=== PATIENT | female | born 1955 | race Caucasian/White ===

== ENCOUNTER 2021-03-12 12:33 | Outpatient (CLI) | payer MEDICARE, MEDICAID, SELFPAY ==
--- NOTE | ~2021-03-12 | MM_ITS ---
EXAMINATION: MM stereotactic bx RT, MM post biopsy diagnostic RT, MM stereotactic specimen RT, Specim en Radiograph, Tissue Marker Clip Placement, Unilateral Mammogram DATE: 03/12/2021 14:18 (accession [id number]), 03/12/2021 14:20 (accession [id number]), 03/12 14:19 (accession [id number]) INDICATION: Abnormal mammogram: Grouped inner mid right breast microcalcifications. TECHNIQUE AND FINDINGS: The risks and potential benefits of the procedure were discussed with the patient and written informe d consent was obtained. Timeout procedure was performed. The patient was placed in the prone position on the dedicated stereotactic table with the right breast in craniocaudal compression, and the area of interest was localized and targeted utilizing digital imaging with stereotaxis. After sterile preparation of the skin, 1% lidocaine was utilized for local anesthesia at the skin pun cture site and 1% lidocaine with epinephrine was utilized for deeper local anesthesia/is about the bi opsy site. A 9G [facility] vacuum assisted biopsy needle was advanced to the level of the calcification o f interest from a cephalad approach utilizing stereotactic guidance and a total of 12 tissue core bio psies were obtained. A specimen radiograph demonstrates that the calcifications of interest are included within the tissue cores. A tissue marker clip was then placed at the biopsy site. A digital mammographic exposure co nfirmed the successful deployment of the biopsy marker. The needle was removed and hemostasis was ac hieved. A sterile bandage was applied. The patient tolerated the procedure well and there is no javy dence of significant immediate complication. The patient was given verbal as well as written postpro cedural instructions prior to discharge from the department. Tissue cores were submitted to surgical pathology for histologic analysis. A 2-view right unilateral digital mammogram was obtained post procedure, demonstrating the tissue mar ker clip in expected position. IMPRESSION: 1. Successful stereotactic biopsy of inner mid right breast grouped microcalcifications, followed b y tissue marker clip placement. Please refer to pathology report for histologic analysis. Reviewed, dictated and finalized at [facility]. Reviewed, dictated and finalized at [facility]. IMPRESSION: 1. Successful stereotactic biopsy of inner mid right breast grouped microcalc ifications, followed by tissue marker clip placement. Please refer to patholog y report for histologic analysis. IMPRESSION: 1. Successful stereotactic biopsy of inner mid right breast grouped microcalc ifications, followed by tissue marker clip placement. Please refer to patholog y report for histologic analysis.
== END 2021-03-12 12:34 | disposition home or self-care (01) ==
PROVIDERS: Visit Provider Surgery
DX: R92.1 Mammographic calcification found on diagnostic imaging of breast (principal)
CPT/HCPCS: 19081; 77065; 88305; 88342

== ENCOUNTER 2021-04-05 10:30 | Outpatient (CLI) | payer MEDICARE, MEDICAID, SELFPAY ==
[2021-04-05 10:59] LABS: Basophils Absolute Auto 0.1 K/mm3 (0.0-0.1); Basophils Percent Auto 0.7 % (0.2-1.2); Eosinophils Absolute Auto 0.3 K/mm3 (0-0.3); Eosinophils Percent Auto 4.1 % (0-4.4); Hematocrit 44.1 % (37.0-47.0); Hemoglobin 14.5 g/dL (12.0-15.0); Immature Granulocyte Absolute 0.02 K/mm3 (0.00-0.031); Immature Granulocyte Percent A 0.3 % (0-0.5); Lymphocytes Absolute Auto 2.15 K/mm3 (0.9-3.2); Lymphocytes Percent Auto 30.3 % (18.3-44.2); Mean Corpuscular HGB Conc 32.9 g/dl (32-36); Mean Corpuscular Hemoglobin 30.7 pg (26-34); Mean Corpuscular Volume 93.4 fl (80-100); Monocytes Absolute Auto 0.4 K/mm3 (0.1-0.6); Monocytes Percent Auto 5.8 % (2.6-8.5); Neutrophils Absolute Auto 4.2 K/mm3 (1.3-6.7); Neutrophils Percent Auto 58.8 % (45.5-73.1); Platelet Count Result 246 k/mm3 (150-375); Red Blood Count 4.72 M/mm3 (4.2-5.4); Red Cell Distribution Width 13.9 % (11.5-14.5); White Blood Count 7.1 K/mm3 (4.5-10.0)
[2021-04-05 11:11] LABS: Alanine Aminotransferase 22 U/L (4-35); Alkaline Phosphatase 92 U/L (38-126); Anion Gap 10 mmol/L (8-16); Aspartate Amino Transferase 29 U/L (14-36); Bilirubin,Total 1.9 mg/dL (0.2-1.3); Blood Urea Nitrogen 15 mg/dL (7-17); Calcium 9.9 mg/dL (8.4-10.2); Carbon Dioxide 29 mmol/L (22-30); Chloride 101 mmol/L (98-107); Estimated Glomerular Filt Rate > 60; Glucose 99 mg/dL (65-110); Potassium 4.3 mmol/L (3.4-5.0); Sodium 140 mmol/L (137-145)
== END 2021-04-05 10:31 | disposition home or self-care (01) ==
LOC: ANHSURGERY 10:36
PROVIDERS: PCP Family Medicine; Visit Provider Surgery
DX: Z01.812 Encounter for preprocedural laboratory examination (principal); N63.10 Unspecified lump in the right breast, unspecified quadrant; Z51.81 Encounter for therapeutic drug level monitoring; Z79.899 Other long term (current) drug therapy
CPT/HCPCS: 36415; 80053; 85025

== ENCOUNTER → 2021-04-07 00:33 | Outpatient (CLI) | payer MEDICARE, MEDICAID, SELFPAY ==
[2021-04-07 17:04] LABS: SARS-CoV-2 RNA PCR Negative
== END ==
PROVIDERS: PCP Family Medicine; Visit Provider Surgery
DX: Z01.812 Encounter for preprocedural laboratory examination (principal); Z20.822 Contact with and (suspected) exposure to COVID-19
CPT/HCPCS: C9803; U0003; U0005

== ENCOUNTER 2021-04-10 02:58 | Day surgery (SDC) | payer MEDICARE, MEDICAID, SELFPAY ==
[2021-03-29 15:11] VITALS: BMI 43.6
[2021-04-10] VITALS (8 sets, daily range): BP systolic 105–148; BP diastolic 61–72; PULSE 61–78; RESP 9–17; TEMP 36.4–36.6; O2SAT 98–100
--- NOTE | ~2021-04-10 | MM_ITS ---
MM needle loc RT DATE: 04/10/2021 10:13 INDICATION: Pre-surgical mammographically guided localization of biopsy marker; biopsy diagnosis of a typical intraductal papillary proliferation worrisome for inflammation carcinoma TECHNIQUE: The purpose of the procedure, technique and potential complications were discussed with th e patient. The patient indicated understanding and gave consent. Timeout procedure was performed. The breast was placed in ML compression with biopsy grid apparatus over the medial aspect of the abdirahman st. Using alphabetic and numerical coordinates, the appropriate site for percutaneous placement of th e needle from a medial approach was identified. The skin was prepared with sterile Betadine. 1% lidoc ra local anesthetic was administered to the skin. A 5 cm Brandon Mammalok needle was introduced into the area of the biopsy marker from a medial approach . Mediolateral exposure confirmed appropriate direction of the needle. Craniocaudal exposures were ut ilized to adjust the needle to the appropriate depth. The wire was engaged through the tip of the nee dle and then the needle was withdrawn. Final ML and craniocaudal views reveal the wire immediately adjacent to the biopsy marker. The patient tolerated the procedure well, without any complaints or complications. COMPARISON: 03/12/2021 post biopsy diagnostic right mammogram IMPRESSION: Successful preoperative mammographically guided percutaneous wire localization of radiopa que biopsy marker in inner mid right breast Reviewed, dictated and finalized at [facility]. Reviewed, dictated and finalized at [facility]. IMPRESSION: Successful preoperative mammographically guided percutaneous wire l ocalization of radiopaque biopsy marker in inner mid right breast
--- NOTE | ~2021-04-10 | MM_ITS ---
MM surgical specimen RT DATE: 04/10/2021 13:49 INDICATION: Surgical excision of biopsy marker/surrounding tissues TECHNIQUE: Single noncompression mammographic exposure of surgical soft tissue specimen COMPARISON: 03/12/2021 post stereotactic biopsy right diagnostic mammogram 04/10/2021 needle localization mammographic images FINDINGS: The biopsy marker is present within the specimen tissue. IMPRESSION: Suspect subtle surgical excision of biopsy marker and surrounding tissues Reviewed, dictated and finalized at [facility]. Reviewed, dictated and finalized at [facility]. IMPRESSION: Suspect subtle surgical excision of biopsy marker and surrounding t issues
--- NOTE | 2021-04-10 09:09 | WPDANESEPPF ---
Anes - Initial Pre Proc Eval Procedure: Operation Date: 04/10/21 12:00 Proposed Procedures p Right Breast Biopsy with Ultrasound and/or Mammogram Guided Needle Localization - Lukas Banks MD s Excision Subcutaneous Mass On Right Lower Lateral Chest - Lukas Banks MD Date/Time: 04/10/21 09:09 Surgeon: Lukas Banks MD Pre Op Diagnosis: right breast mass Patient Data Age: 65 Gender: F Height: 1.59 m Weight: 110 kg Allergies Allergy/AdvReac Type Severity Reaction Status Date / Time No Known Allergies Allergy Verified 04/05/21 13:12 Home Medications Medication Instructions Recorded Confirmed Type albuterol sulfate 90 mcg/actuation 1 inh INHALATION Q4H PRN 03/01/21 04/10/21 History aerosol inhaler allopurinol 100 mg tablet 100 mg PO DAILY PRN 03/01/21 04/05/21 History alprazolam 0.5 mg tablet 0.5 mg PO DAILY PRN 03/01/21 04/10/21 History aspirin 81 mg tablet,delayed 81 mg PO DAILY 03/01/21 04/10/21 History release fluticasone propionate 50 1 spray INTRANASAL DAILY PRN 03/01/21 04/05/21 History mcg/actuation nasal spray,suspension levothyroxine 88 mcg capsule 88 mcg PO QAM 03/01/21 04/10/21 History losartan 100 mg tablet 50 mg PO QAM 03/01/21 04/10/21 History potassium chloride 20 mEq 10 meq PO DAILY 03/01/21 04/10/21 History tablet,extended release rosuvastatin 40 mg tablet 40 mg PO HS 03/01/21 04/10/21 History ascorbic acid (vitamin C) [Vitamin 500 mg PO DAILY 03/29/21 04/10/21 History C] zinc 50 mg PO QAM 03/29/21 04/10/21 History Patient hx anesthesia problems: post op nausea/vomiting Family hx anesthesia problems: none Results Review: All pre-operative results and documents have been reviewed as part of the pre-operative evaluation. [facility] Past Medical History Medical History (Updated 04/10/21 @ 09:10 by Nik Loo DO) Anxiety Asthma Heart disease High cholesterol Hypertension Hypothyroidism PONV (postoperative nausea and vomiting) Sleep apnea CPAP Surgical History Surgical History History of breast lump/mass excision 1975 left breast- benign History of 1980 & 1990 History of hysterectomy 2003 Social History Social History Smoking status: Never smoker Second hand tobacco smoke exposure: No Alcohol intake: never Substance use: never Substance use type: does not use Living arrangements: with family Additional living arrangements comments: LIVES WITH SPOUSE - [facility] [phone] Additional occupation/education comments: Homemaker Spiritual care concerns: No Anes - Eval Final PreProcedure Day of Procedure 04/10/21 09:09 Patient weight: morbidly obese Heart: regular rate and rhythm Lungs: clear to auscultation and normal air movement Airway: Mallampati scale class II Neurological: alert and oriented Last oral intake: >/= 8 hours ASA classification: III Emergent: no Anesthetic plan: proceed Anesthesia type and monitoring: general LMA and standard monitoring Results Review: All pre-operative results and documents have been reviewed as part of the pre-operative evaluation. Informed Consent: The patient's anesthetic plan and its attendant risks and benefits were discussed with the patient/family/POA. Questions were solicited and answers provided to the satisfaction of the patient/family/POA.
[2021-04-10] MEDS: LACTATED RINGERS 1,000 ML 30 ML IV CONT ×2 (09:30→14:10)
[2021-04-10] MEDS: FAMOTIDINE 20 MG/2 ML VIAL IV PUSH (10:46)
--- NOTE | 2021-04-10 11:52 | WPDHPUPDATE1 ---
History and Physical Update Update Date/Time: 04/10/21 11:52 History and Physical has been reviewed, including an updated exam of the patient. There are NO changes in the patient's condition. Risks, benefits, and alternatives of excision of a recurrent lipoma on the rt lateral chest and a needle localized excisional biopsy of the Rt. breast have been discussed and questions answered. Patient agrees to proceed with procedure.
[2021-04-10] MEDS: ceFAZolin 2 GM/D5W 50 ML 2 GM/50 ML BAG IVPB (12:21)
[2021-04-10] MEDS: LIDO 2%/EPINEPHRINE 1:100,000 20 ML VIAL INFILTRATE (12:57)
--- NOTE | 2021-04-10 13:47 | SUR.OPER ---
specimen given to crista in mamms
--- NOTE | 2021-04-10 16:06 | W.PM.PROC2 ---
Procedure Note - Detailed Date of Procedure 04/11/21 Pre-op Diagnosis 1. right breast mass noted by mammogram 2. 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 Right needle localized breast biopsy 2.Excision of skin scar/fairly large right lateral chest lipoma Surgeon Lukas Banks MD Consumer Science Teacher Effie SMITH, Or assistant plant control operator Anesthesia local Description of Procedure The patient was placed in the supine position rotated slightly to the left to expose the chest wall lipoma on the right. Patient's right arm was placed out on arm board and secured in position. After a surgical time out confirming patient and procedure, the patient was prepped and draped in the usual sterile fashion. Local anesthetic was administered subcutaneously in along plus medially and laterally to the scar from the previous attempted excision. The lesion measured 7.5cm X 6.5 cm (X 4 cm in depth,after excision). An elliptical incision was made around the old linear scar taking a thin margin circumferentially. I dissected down to the deep subcutaneous tissues and then completely excised the lesion which appeared to be a fatty tumor consistent with a lipoma it did have lobular fingers extending into the surrounding normal subcutaneous tissue.. Bleeding was controlled with electrocautery. The wound was closed in two to three layers. An un-dyed 3-0 vicryl subcutaneous and then deep dermal and then a 4-0 undyed Monocryl running subcuticular closure was completed. Surgical glue applied as dressing. Since were able to bring subcutaneous tissues together fairly well and obliterate space I did not feel a drain was required. Patient tolerated this well. For the breast biopsy: We carefully preserved the wire as we prepped and the entire area of both the right breast and the lateral chest wall recurrent lipoma was prepped into the field and draped appropriately. As the surgical scrub technician was closing the skin in a subcuticular manner on the right chest I began marking out the planned incision near the wire on her medial upper inner right breast. The patient was seen preoperatively in the holding area prior to the OR, and I marked the patient on the operative side. As noted above she was prepped and draped in the usual sterile fashion around the localizing wire that had been placed in the left breast in radiology. I carefully reviewed the patient's post localization radiology films in the room on the back lit Radiology viewing screens. A timeout was performed prior to the above lipoma excision confirming patient and site of surgery being the lipoma and the Right breast which has a localization wire within it. The localizing wire was noted to be entering the breast in the upper mid right breast approximately 2-3 cm above the level of the nipple-areolar border land entering the breast on angle from medial to lateral in the upper inner quadrant. An incision was made transversely along the wire more lateral than medial, and I carefully with tissue retraction dissected straight down along the wire for about 2 cm. (the wire appeared to go through at least 2 cm of breast tissue before coming close to the lesion in question that had the clip in it), I then grasped the breast tissue both medial and lateral to the wire and excised an approximate area of 3 x 2 x 3 cm around the wire itself. This included the breast tissue just beyond the curled hook at the end of the wire. The tissue surrounding the wire was removed widely with electrocautery and electrocautery was used for hemostasis. The specimen was oriented on a grid and sent for specimen mammogram. I DID NOT send the breast tissue for fresh tissue exam immediate report requested, but rather sent it fresh to pathology after the specimen mammogram. While we awaited the report of the specimen mammogram I carefully inspected the entire inner circumference of the biopsy cavity. Bovie cauter
== END 2021-04-10 15:56 | disposition home or self-care (01) ==
PROVIDERS: PCP Family Medicine; Visit Provider Surgery
PROC: (CPT 19125; principal; 2021-04-10 12:00)
PROC: (CPT 19125; 2021-04-10 12:00)
DX: C50.211 Malignant neoplasm of upper-inner quadrant of right female breast (principal); D17.1 Benign lipomatous neoplasm of skin and subcutaneous tissue of trunk; I11.9 Hypertensive heart disease without heart failure; E78.00 Pure hypercholesterolemia, unspecified; J45.909 Unspecified asthma, uncomplicated; G47.30 Sleep apnea, unspecified; E03.9 Hypothyroidism, unspecified; F41.9 Anxiety disorder, unspecified; Z79.51 Long term (current) use of inhaled steroids; Z79.82 Long term (current) use of aspirin; E66.01 Morbid (severe) obesity due to excess calories; Z68.41 Body mass index [BMI] 40.0-44.9, adult
CPT/HCPCS: 19125; 21552; 19281; 36415; 76098; 80053; 85025; 88304; 88307; 88342; 88360; A9270; C1769; C9803; J0690; J1100; J1170; J2250; J2370; J2405; J2704; J3010; J7120; U0003; U0005

== ENCOUNTER 2021-04-30 09:35 | Outpatient (CLI) | payer MEDICARE, MEDICAID, SELFPAY ==
--- NOTE | ~2021-04-30 | MR_ITS ---
MR breast BI wo/w con 05/02/2021 14:33 WASHING MACHINE OPERATOR INDICATION: Malignant neoplasm of the right breast. TECHNIQUE: MRI of the breasts perform using standard protocol pre-and post IV contrast with the follo wing sequences: Axial T2 STIR, axial T1, axial vibrant T1 with fat suppression precontrast and multip hasic postcontrast. COMPARISON: Mammogram dated 02/12/2021 and 11/29/2020 FINDINGS: Right breast: There are no abnormalities on the precontrast sequences. There is moderate ba ckground parenchymal enhancement. There is a fluid collection in the central medial right breast dawn uring up to 4 cm with surrounding areas of rapid washout enhancement, likely postsurgical change. In the upper outer quadrant of the right breast there is a homogeneously enhancing mass measuring 1.4 x 1.2 x 0.9 cm with rapid washout enhancement. No right axillary lymphadenopathy. LEFT BREAST: No signal abnormalities on precontrast sequences. There is moderate background parenchy mal enhancement. No enhancing lesions following contrast administration. No areas of enhancement m eeting threshold criteria on CAD analysis. No evidence of signal abnormalities in the axillary or i nternal mammary node distributions. IMPRESSION: 1: Right breast: Fluid collection mid inner aspect of the right breast likely represents postsurgica l hematoma/stroma with surrounding enhancement, likely fibrosis. There is an additional 1.4 cm mass i n the upper outer quadrant of the right breast, 9.2 cm to the nipple and 1.8 cm to the skin surface. This mass exhibits rapid washout enhancement. Synchronous tumor or metastatic disease cannot be exclu ded. Recommend repeat diagnostic right mammogram and ultrasound. BI-RADS CATEGORY 0 - INCOMPLETE STUD Y, NEED ADDITIONAL IMAGING EVALUATION. 2: Left breast: Negative. No evidence of malignancy. BI-RADS category 1. Recommend annual mammogr aphy follow-up. Reviewed, dictated and finalized at [facility]. ING MACHINE OPERATOR IMPRESSION: 1: Right breast: Fluid collection mid inner aspect of the right breast likely represents postsurgical hematoma/stroma with surrounding enhancement, likely fi brosis. There is an additional 1.4 cm mass in the upper outer quadrant of the r ight breast, 9.2 cm to the nipple and 1.8 cm to the skin surface. This mass exh ibits rapid washout enhancement. Synchronous tumor or metastatic disease cannot be excluded. Recommend repeat diagnostic right mammogram and ultrasound. BI-RA DS CATEGORY 0 - INCOMPLETE STUDY, NEED ADDITIONAL IMAGING EVALUATION. 2: Left breast: Negative. No evidence of malignancy. BI-RADS category 1. Re commend annual mammography follow-up.
== END 2021-04-30 09:36 | disposition home or self-care (01) ==
PROVIDERS: PCP Family Medicine; Visit Provider Surgery
DX: C50.911 Malignant neoplasm of unspecified site of right female breast (principal); R92.8 Other abnormal and inconclusive findings on diagnostic imaging of breast
CPT/HCPCS: 77049; A9577; C8908

== ENCOUNTER 2021-05-15 10:06 | Outpatient (CLI) | payer MEDICARE, MEDICAID, SELFPAY ==
[2021-05-15 10:36] LABS: Basophils Absolute Auto 0.1 K/mm3 (0.0-0.1); Basophils Percent Auto 0.6 % (0.2-1.2); Eosinophils Absolute Auto 0.3 K/mm3 (0-0.3); Eosinophils Percent Auto 3.4 % (0-4.4); Hematocrit 40.6 % (37.0-47.0); Hemoglobin 14.1 g/dL (12.0-15.0); Immature Granulocyte Absolute 0.02 K/mm3 (0.00-0.031); Immature Granulocyte Percent A 0.3 % (0-0.5); Lymphocytes Percent Auto 26.3 % (18.3-44.2); Mean Corpuscular HGB Conc 34.7 g/dl (32-36); Mean Corpuscular Hemoglobin 31.1 pg (26-34); Mean Corpuscular Volume 89.6 fl (80-100); Mean Platelet Volume 8.8 fl (7.4-10.4); Monocytes Absolute Auto 0.4 K/mm3 (0.1-0.6); Neutrophils Absolute Auto 5.1 K/mm3 (1.3-6.7); Neutrophils Percent Auto 64.4 % (45.5-73.1); Platelet Count Result 236 k/mm3 (150-375); Red Blood Count 4.53 M/mm3 (4.2-5.4); Red Cell Distribution Width 13.5 % (11.5-14.5)
== END 2021-05-15 10:07 | disposition home or self-care (01) ==
PROVIDERS: PCP Family Medicine; Visit Provider Surgery
DX: C50.919 Malignant neoplasm of unspecified site of unspecified female breast (principal)
CPT/HCPCS: 36415; 85025

== ENCOUNTER → 2021-05-25 01:59 | Outpatient (CLI) | payer MEDICARE, MEDICAID, SELFPAY ==
[2021-05-25 17:54] LABS: SARS-CoV-2 RNA PCR Negative
== END ==
PROVIDERS: PCP Family Medicine; Visit Provider Surgery
DX: Z01.812 Encounter for preprocedural laboratory examination (principal); Z20.822 Contact with and (suspected) exposure to COVID-19
CPT/HCPCS: C9803; U0003; U0005

== ENCOUNTER 2021-05-28 03:11 | Day surgery (SDC) | payer MEDICARE, MEDICAID, SELFPAY ==
[2021-05-14 16:04] VITALS: BMI 43.4
--- NOTE | 2021-05-14 16:11 | PC.NURSE ---
Addendum entered by Iwona Daugherty RN 05/14/21 16:19: COVID TESTING 05/25/21 AT 0900 Original Note: Report to the Outpatient Waiting Room, entrance under the green pavilion located off [facility], at time _0700 on date _05/28/21 . OR Time: _1000 . NUC MED AT 0800 - You and your visitor will be asked a series of questions to screen for COVID 19 for your protection. - A mask is required within the hospital. - Only one visitor is allowed at this time. Patient visitors will be guided where to wait when not with patient. Preoperative COVID Testing Requirements: No COVID Test needed if: (proof is required; if not received patient will have Rapid Test prior to entry) - Patient has received COVID Vaccine at least 14 days prior to procedure date or - Patient has positive COVID test result within last 90 days of surgery date. COVID Test needed if above criteria is not met If not COVID vaccinated a COVID test must be conducted within 72 hours of surgery and patient is asked to isolate self from time of testing until procedure. You will go to the [facility] for your COVID testing. The [facility] site is located at the corner of [address] [facility]. You will only be called if COVID results are positive and your surgeon may reschedule your elective surgery date. Patients may have clear liquids (water, carbonated beverages, clear teas, apple juice) until 3 hours prior to surgery with a maximum of 20 ounces. - No food from midnight until time of surgery - Infants may have breast milk until 4 hours before surgery, infant formula 6 hours prior to surgery. - Children will be allowed to drink immediately following surgery. If applicable, please bring a bottle or sippy cup to assist with drinking. Juice, water, soda, and popsicles are readily available. For infants on formula, please bring formula the day of surgery. Pacifiers are allowed. Take the following medications with a SIP of water the morning of surgery: __INHALER IF NEEDED,ALPRAZOLAM,LEVOTHYROXINE Medications to discontinue per physician _ALL VITAMINS AND SUPPLEMENTS 3 DAYS PRE OP Date to take last dose___05/24/21 Please no make-up, nail lebanese, hairspray, perfume, deodorant, or body powder the day of surgery. No jewelry (including any body piercings) or valuables the day of surgery, leave them at home. Please take a shower or bath the night before, or the morning of, surgery with an antibacterial soap. Wear comfortable, loose fitting clothing. Children are encouraged to wear pajamas. - Jewelry must be removed prior to entering the operating room. Rings and piercings that are not removed may be cut off. - The hospital will not accept responsibility for valuables. - Please leave all valuables, including medications, at home the day of surgery. HIBICLENS SHOWER MORNING OF SURGERY If you are going home after surgery, a licensed restaurant delivery driver must drive you home. - NO public transportation without another adult. - We recommend that an adult stay with you for 24 hours following discharge. - We also recommend that you do not drive, make important decision, drink alcoholic beverages, or take any drugs that were not prescribed by your health care provider for at least 24 hours after your discharge time. For Pediatric surgeries, we recommend two adults accompany the child home (only one inside the building at this time). Follow any additional instructions given to you from your surgeon. Telephone instructions given to __PATIENT and asked if any additional questions and then verbalized understanding. Patient advised to call surgeon office or pre surgery nurse liaison [phone] if any additional
[2021-05-28] VITALS (10 sets, daily range): BP systolic 120–153; BP diastolic 57–87; PULSE 52–85; RESP 10–18; TEMP 36.1–37.2; O2SAT 95–100; BMI 42.7
--- NOTE | ~2021-05-28 | NM_ITS ---
EXAMINATION: NM sentinel node inject only DATE: 05/28/2021 10:42 INDICATION: Right breast cancer TECHNIQUE: 0.970 mCi Tc-99m filtered sulfur colloid was injected in 4 aliquots in the anterior upper outer quadrant of the breast near the areola. No images were obtained. IMPRESSION: 1. Right breast sentinel lymph node radiopharmaceutical injection. Reviewed, dictated and finalized at location A. R ENERGY SYSTEM INSTALLER
--- NOTE | 2021-05-28 08:38 | SUR.PREOP ---
PT STATES SHE RINSE HER MOUTH WITH PEROXIDE AND MOUTHWASH OVER THE WEEKEND AND THE LEFT SIDE OF HER MOUTH, GUMLINE, IS RED AND INFLAMED, ALSO LT SIDE OF JAW HAS BEEN SWOLLEN. NO FEVER. WILL NOTIFY DR HULL AND ANESTHESIA
[2021-05-28] MEDS: LACTATED RINGERS 1,000 ML 30 ML IV CONT ×3 (08:59→16:29)
[2021-05-28] MEDS: ACETAMINOPHEN 500 MG TABLET 1000 MG PO (08:59)
[2021-05-28] MEDS: KETOROLAC 15 MG/ML VIAL (*BKC) IV PUSH (08:59)
--- NOTE | 2021-05-28 09:17 | SUR.PREOP ---
0908; DR HULL NOTIFIED THAT PT GOING TO [facility]. PT TRANSPORTED PER W/C
--- NOTE | 2021-05-28 10:08 | WPDANESEPPF ---
Anes - Initial Pre Proc Eval Procedure: Operation Date: 05/28/21 11:00 Proposed Procedures p Right Breast Total Mastectomy, [place] Lymph Node Biopsy, Possible Right Axillary Dissection - Lukas Banks MD Date/Time: 05/28/21 10:08 Surgeon: Lukas Banks MD Pre Op Diagnosis: invasive lobular breast cancer Patient Data Age: 66 Gender: F Height: 1.6 m Weight: 109.6 kg Last Vital Signs Temp 37.2 C 05/28/21 08:37 Pulse 75 05/28/21 08:37 Resp 18 05/28/21 08:37 BP 135/80 05/28/21 08:37 Pulse Ox 100 05/28/21 08:37 Allergies Allergy/AdvReac Type Severity Reaction Status Date / Time No Known Allergies Allergy Verified 05/28/21 08:23 Home Medications Medication Instructions Recorded Confirmed Type albuterol sulfate 90 mcg/actuation 1 inh INHALATION Q4H PRN 03/01/21 05/14/21 History aerosol inhaler allopurinol 100 mg tablet 100 mg PO PRN PRN 03/01/21 05/14/21 History alprazolam 0.5 mg tablet 0.5 mg PO PRN PRN 03/01/21 05/28/21 History aspirin 81 mg tablet,delayed 81 mg PO DAILY 03/01/21 05/28/21 History release levothyroxine 88 mcg capsule 88 mcg PO QAM 03/01/21 05/28/21 History potassium chloride 20 mEq 10 meq PO DAILY 03/01/21 05/28/21 History tablet,extended release rosuvastatin 40 mg tablet 40 mg PO HS 03/01/21 05/28/21 History zinc 50 mg PO QAM 03/29/21 05/28/21 History anastrozole 1 mg PO DAILY 05/14/21 05/28/21 History losartan 100 mg tablet 50 mg PO QAM tablet 05/16/21 05/28/21 History Patient hx anesthesia problems: none Family hx anesthesia problems: none Results Review: All pre-operative results and documents have been reviewed as part of the pre-operative evaluation. [facility] Past Medical History Medical History Anxiety Asthma Heart disease High cholesterol Hypertension Hypothyroidism PONV (postoperative nausea and vomiting) Sleep apnea CPAP Surgical History Surgical History History of breast lump/mass excision 1975 left breast- benign History of 1980 & 1990 History of hysterectomy 2003 History of tonsillectomy Social History Social History Smoking status: Never smoker Second hand tobacco smoke exposure: No Alcohol intake: never Substance use: never Substance use type: does not use Living arrangements: with family Additional living arrangements comments: LIVES WITH SPOUSE - [facility] [phone] Additional occupation/education comments: Homemaker Spiritual care concerns: No Anes - Eval Final PreProcedure Day of Procedure 05/28/21 10:08 Patient weight: morbidly obese Heart: regular rate and rhythm Lungs: clear to auscultation Airway: Mallampati scale class II Neurological: alert and oriented Last oral intake: >/= 8 hours ASA classification: III Emergent: no Anesthetic plan: proceed Anesthesia type and monitoring: general ETT and standard monitoring Results Review: All pre-operative results and documents have been reviewed as part of the pre-operative evaluation. Informed Consent: The patient's anesthetic plan and its attendant risks and benefits were discussed with the patient/family/POA. Questions were solicited and answers provided to the satisfaction of the patient/family/POA.
--- NOTE | 2021-05-28 10:55 | SUR.PREOP ---
PT AND SPOUSE NOTIFIED THAT DR HULL IS STILL IN SURGERY. SURGERY TO BE DELAYED APPROX 30-45 MIN
--- NOTE | 2021-05-28 11:55 | WPDHPUPDATE1 ---
History and Physical Update Update Date/Time: 05/28/21 11:55 History and Physical has been reviewed, including an updated exam of the patient. There are NO changes in the patient's condition. We do have more information with her Genetic test done by Dr. Cotton showing no Genectic predispositions to CA and she has seen Dr Hi Kam about reconstruction and has decided on delayed Rt. breast reconstruction. Risks, benefits, and alternatives have been discussed and questions answered. Patient agrees to proceed with procedure.
[2021-05-28] MEDS: ceFAZolin 2 GM/D5W 50 ML 2 GM/50 ML BAG IVPB (12:14)
--- NOTE | 2021-05-28 14:22 | SUR.OPER ---
right sentinel lymph node given to luisa in lab by gustavo gillis at [id number]
[2021-05-28] MEDS: ISOSULFAN BLUE 1% INJ 5 ML VIAL SUB-Q (14:45)
--- NOTE | 2021-05-28 15:09 | SUR.OPER ---
specimens sent with JEANNINE Terry and received in pathology by Nathanael
[2021-05-28] MEDS: fentaNYL CITRATE INJ (*CRX) 100 MCG/2 ML VIAL 25 MCG IV PUSH ×4 (16:12→16:55)
[2021-05-28] MEDS: ONDANSETRON INJ 4 MG/2 ML VIAL IV PUSH (16:19)
--- NOTE | 2021-05-28 16:35 | W.PM.PROC2 ---
Procedure Note - Detailed Date of Procedure 05/28/21 Pre-op Diagnosis invasive lobular breast cancer (multifocal). Post-op Diagnosis same Procedure Performed Simple Right Mastectomy [place] Lymph node biopsy X 1 on the Right and excision of one non-sentinel lymph node. Dye injection for [place] lymph node biopsy. Surgeon Lukas Banks MD Senior Art Director Sonya SMITHOR 1st assist Anesthesia general Indications patient initially had an abnormality on screening mammogram. Subsequently a core biopsy was done which showed usual ductal hyperplasia and some areas of on unusual ductal hyperplasia. therefore, I recommended that the patient have complete excision of the area to carefully look over the entire tissue abnormality. Subsequent needle localized lumpectomy of the area of the previously placed core biopsy clip revealed both invasive lobular carcinoma and LCIS. Because of this we proceeded with further workup which included breast MRI. This revealed enhancement in the area of the previous lumpectomy cavity and edges and also a separate upper outer quadrant lesion that enhanced suspicious for another focus of breast cancer. No abnormalities were noted in the left breast on MRI. Because this patient had genetic testing which did not port 10 that she had any genetic Prieb disposition to breast cancer. She had a consultation with Medical Oncology and Plastic surgery and we discussed both mastectomy with immediate and delayed reconstruction. After thorough discussion with all parties she decided to proceed with a mastectomy with sentinel lymph node biopsy possible right axillary dissection should the any of the sentinel lymph nodes turned to be positive initially on perioperative exam. Patient therefore presents today for this more definitive treatment. Findings Large breast without abnormalities while raising the skin flaps. One sentinel lymph node identified with both some channels of blue dye coming to it and with increased counts on scintigraphy. There was also adjacent non sentinel lymph node that was just deep to the sentinel lymph node that did not have any significant scintigraphy counts. As I was doing the mastectomy we did not run into the lumpectomy cavity. I was able to include the upper inner quadrant scar in the skin ellipse for the mastectomy. Description of Procedure The patient was seen pre-operatively in the holding area, and I marked the patient on the operative side. The Right. She was brought to the operating room and anesthesia delivered. She was prepped and draped in the usual sterile fashion. The arm on this side was placed into a stockinette and wrapped with a Coband. It was then draped into the field sterile. A timeout was performed confirming patient and site of surgery. Then after inspection of the breast I carefully used Lymphazarin blue, 5 cc, to inject 1 cc in the subcuticular area of the areola at the edge of the areola at [address]. This was done with a 27 gauge needle and then the breast was massaged for 1 minute. Following this I used the Navigator probe to carefully check the skin in the area of the axilla. I put a small black dot with an indelible ink marker on the spot with the highest counts. Carefully using the probe in the upper outer quadrant of the left breast I did not find any hot lymph node within the breast tissue per se that I could tell. Following this we prepared to do the simple mastectomy on the right. I outlined an elliptical excision including upper and lower flaps to excise a james trnsverse ellipse of skin and nipple. For this patient I was able to include the scar from the previous lumpectomy which was in the upper inner quadrant of the breast within the ellipse to be excised. I then raised the upper flap in standard fashion using Artie clamps and Bovie cautery after making an incision with a 10 blade knife. Once the entire upper flap had been raised in standard fashion,
--- NOTE | 2021-05-28 16:54 | SUR.PHASEI ---
[phone] sbar faxed floor notified
--- NOTE | 2021-05-28 17:25 | PC.NURSE ---
This patient, Bessy Cano, was received from PACU on 05/28/21 at 1725. Patient oriented to unit policies and routines
[2021-05-28] MEDS: FAMOTIDINE 20 MG TABLET PO (20:48)
[2021-05-28] MEDS: DOCUSATE SODIUM 100 MG CAPSULE PO (20:48)
[2021-05-28] MEDS: ALBUTEROL SULFATE (*SP) AEROSOL 1 PUFF INHALATION (21:31)
[2021-05-29 04:45] VITALS: BP 109/55; PULSE 62; RESP 16; TEMP 37.3; O2SAT 98
[2021-05-29 05:41] LABS: Alanine Aminotransferase 17 U/L (4-35); Albumin Level 3.7 g/dL (3.5-5.1); Alkaline Phosphatase 72 U/L (38-126); Anion Gap 7 mmol/L (8-16); Aspartate Amino Transferase 22 U/L (14-36); Blood Urea Nitrogen 14 mg/dL (7-17); Calcium 9.3 mg/dL (8.4-10.2); Carbon Dioxide 24 mmol/L (22-30); Chloride 103 mmol/L (98-107); Estimated CRCL calculation 93 ml/min; Estimated Glomerular Filt Rate > 60; Glucose 137 mg/dL (65-110); Sodium 134 mmol/L (137-145)
[2021-05-29 07:50] VITALS: BP 128/70; PULSE 80; RESP 18; TEMP 37.3; O2SAT 100
[2021-05-29] MEDS: LEVOTHYROXINE SODIUM 88 MCG TABLET PO (08:41)
[2021-05-29] MEDS: DOCUSATE SODIUM 100 MG CAPSULE PO (08:42)
[2021-05-29] MEDS: POTASSIUM CHLORIDE 10 MEQ TABLET.ER PO (08:43)
[2021-05-29] MEDS: ZINC SULFATE 220 MG CAPSULE PO (08:46)
[2021-05-29] MEDS: ENOXAPARIN 40 MG/0.4 ML SYRINGE SUB-Q (08:46)
[2021-05-29 08:51] LABS: Basophils Percent Auto 0.1 % (0.2-1.2); Hemoglobin 10.9 g/dL (12.0-15.0); Immature Granulocyte Absolute 0.05 K/mm3 (0.00-0.031); Immature Granulocyte Percent A 0.4 % (0-0.5); Lymphocytes Absolute Auto 1.34 K/mm3 (0.9-3.2); Lymphocytes Percent Auto 11.2 % (18.3-44.2); Mean Corpuscular Hemoglobin 30.5 pg (26-34); Mean Corpuscular Volume 92.4 fl (80-100); Mean Platelet Volume 10.2 fl (7.4-10.4); Monocytes Absolute Auto 0.6 K/mm3 (0.1-0.6); Monocytes Percent Auto 4.7 % (2.6-8.5); Neutrophils Percent Auto 83.6 % (45.5-73.1); Platelet Count Result 186 k/mm3 (150-375); Red Blood Count 3.57 M/mm3 (4.2-5.4); Red Cell Distribution Width 14.1 % (11.5-14.5)
[2021-05-29] MEDS: BENZOCAINE/MENTHOL (*BKC) 18 EA LOZENGE 1 LOZENGE PO (10:45)
[2021-05-29] MEDS: HYDROcodone/acetaminophen (*CRX) 5-325 MG TABLET 1 TAB PO (11:39)
[2021-05-29 11:49] VITALS: TEMP 37.7
--- NOTE | 2021-05-29 13:44 | PM.DS ---
DS: Admitting Diagnosis Discharge Date 05/29/2021 Admitting Diagnosis lobular carcinoma of the right breast DS: Discharge Diagnosis Discharge Diagnosis (1) Lobular carcinoma of right breast: Onset Date: ~03/2021 Code(s): C50.911 - Malignant neoplasm of unspecified site of right female breast Status: Acute Assessment and Plan: The patient had uneventful hospital stay. See operative note from day prior to discharge. Patient had a right-sided mastectomy and sentinel lymph node biopsy for the known lobular carcinoma of the breast and the fact that she had on MRI a separate enhancing focus in the upper outer quadrant of the same breast (right). Patient slept well overnight. She had no nausea. She was tolerating the pain well took 1 pain pill the morning of discharge. Her questions were answered. The nurses taught her how to empty the JOHANA drains and we set up home health to see her for help with dressing changes over the next 2-3 weeks. (2) Sleep apnea: Onset Date: Unknown Code(s): G47.30 - Sleep apnea, unspecified Status: Acute Assessment and Plan: Patient used her home CPAP the night she stated over in the hospital after surgery (3) Hypertension: Onset Date: Unknown Code(s): I10 - Essential (primary) hypertension Status: Acute Assessment and Plan: patient to resume home meds. Her blood pressure did run somewhat high several times during her hospital stay. (4) Body mass index (BMI) of 40.1 to 44.9 in adult: Onset Date: Unknown Code(s): Z68.41 - Body mass index [BMI] 40.0-44.9, adult Status: Acute Assessment and Plan: Encouraged the patient to stay on a heart healthy diet. DS: Summary Hospital Course Reason for hospitalization: Need for right-sided mastectomy with sentinel lymph node biopsy for noon lobular carcinoma of the right breast. Hospital Course: The patient had uneventful hospital stay. See operative note from day prior to discharge. Patient had a right-sided mastectomy and sentinel lymph node biopsy for the known lobular carcinoma of the breast and the fact that she had on MRI a separate enhancing focus in the upper outer quadrant of the same breast (right). Patient slept well overnight. She had no nausea. She was tolerating the pain well took 1 pain pill the morning of discharge. Her questions were answered. Status at Discharge Cognitive/behavioral status at discharge: unchanged and normal. Functional status at discharge: independent ambulation Overall status at discharge: patient is not back to baseline Time Spent with Patient Time attestation: Total time spent providing and/or coordinating discharge services: Time spent: Greater than 30 minutes Exam Const: General: cooperative, comfortable, alert and awake Orientation/consciousness: patient oriented x3 HENMT: Head: normal to inspection Mouth: Yes moist mucous membranes Eyes: Sclera: sclerae normal Pupils: Equal, round and reactive pupils present Neck: Neck: normal visual inspection and no JVD Chest: Chest palpation & inspection: normal inspection of the chest Other: Examination of the right side of the chest and the area of surgery reveals the dressing to be intact without significant drainage. There is serosanguineous drainage in both JOHANA drains. Approximately 20 and 30 cc out each as recorded in the chart. Discussed how to care for these with the patient and with her nurse. Resp: Effort & Inspection: normal respiratory effort Auscultation: clear to auscultation bilaterally Cardio: Jugular venous distension: no JVD Rate: regular rate Neuro: General: patient oriented x3 Cranial nerves: Yes Equal, round and reactive pupils present DS: Data Data Completed and Pending Pending studies at discharge: Pending at discharge 05/28/21 13:59 Surgical [PTH] Routine Labs on day of discharge: Labs from last 24 hours 05/29/21 05/29/21
== END 2021-05-29 14:55 | disposition home health service (06) ==
LOC: ANHSURGERY 08:07 → ANHOB2 17:23
PROVIDERS: PCP Family Medicine; Visit Provider Surgery
PROC: (CPT 19303; principal; 2021-05-28 11:00)
DX: C50.911 Malignant neoplasm of unspecified site of right female breast (principal); J45.909 Unspecified asthma, uncomplicated; I11.9 Hypertensive heart disease without heart failure; E78.00 Pure hypercholesterolemia, unspecified; E03.9 Hypothyroidism, unspecified; G47.30 Sleep apnea, unspecified; F41.9 Anxiety disorder, unspecified; E66.01 Morbid (severe) obesity due to excess calories; Z68.41 Body mass index [BMI] 40.0-44.9, adult; Z79.51 Long term (current) use of inhaled steroids; Z79.82 Long term (current) use of aspirin; Z79.811 Long term (current) use of aromatase inhibitors
CPT/HCPCS: 19303; 38525; 36415; 38792; 80053; 85025; 85049; 86850; 86900; 86901; 88305; 88307; 88331; 88342; 94640; 99199; A9270; A9520; C1713; C9803; J0330; J0690; J1100; J1170; J1650; J1885; J2250; J2405; J2704; J2710; J3010; J7120; U0003; U0005

== ENCOUNTER → 2021-10-13 08:36 | Outpatient (CLI) | payer MEDICARE, MEDICAID, SELFPAY ==
[2021-10-13 14:16] LABS: SARS-CoV-2 RNA PCR Negative
== END ==
PROVIDERS: Radiology Diagnostic Radiology; PCP Family Medicine; Visit Provider Surgery
DX: Z01.812 Encounter for preprocedural laboratory examination (principal); Z20.822 Contact with and (suspected) exposure to COVID-19
CPT/HCPCS: C9803; U0003; U0005

== ENCOUNTER 2021-10-16 12:54 | Outpatient (CLI) | payer MEDICARE, MEDICAID, SELFPAY ==
[2021-10-08 10:42] VITALS: BMI 44.5
--- NOTE | ~2021-10-16 | US_ITS ---
EXAMINATION: US soft tissue chest DATE: 10/16/2021 13:42 INDICATION: Other specified disorders of breast. TECHNIQUE: Multiple grayscale and Doppler ultrasound images of the right breast were obtained. COMPARISON: None FINDINGS: There is an 8.7 x 4.7 x 5.9 cm fluid collection with low-level echoes and fluid/fluid level in right breast. IMPRESSION: 1. 8.7 x 4.7 x 5.9 cm fluid collection in right breast in an area of prior surgery. Reviewed, dictated and finalized at location A. IMPRESSION: 1. 8.7 x 4.7 x 5.9 cm fluid collection in right breast in an area of prior surg jorge.
--- NOTE | ~2021-10-16 | US_ITS ---
CORRECTED REPORT Description corrected to include imaging. 10/17/2021 nubia EXAMINATION: abscess/cyst asp w/imaging DATE: 10/16/2021 14:18 INDICATION: Right breast fluid collection. TECHNIQUE: The procedure including the risks, benefits, and alternatives was discussed with the patient. Risks discussed included bleeding and infection. The patient understood the risks and agreed to proceed. A timeout was performed to verify the patient's name, date of , and procedure to be performed. The skin overlying the right breast was prepped and draped in usual sterile fashion. Anesthetic was administered with 1% lidocaine subcutaneously. An 18 gauge trochar needle was inserted into the right breast fluid collection under continuous sonographic guidance. Fluid was aspirated. The entry site was cleaned and dressed. There were no immediate complications. FINDINGS: Ultrasound images demonstrate the needle in the right breast fluid collection. IMPRESSION: 1. Ultrasound-guided needle drainage of a right breast fluid collection yielding 200 mL brown-red fluid. Reviewed, dictated and finalized at location A. MTDD IMPRESSION: 1. Ultrasound-guided needle drainage of a right breast fluid collection yieldi ng 200 mL brown-red fluid.
== END 2021-10-16 12:55 | disposition home or self-care (01) ==
PROVIDERS: PCP Family Medicine; Visit Provider Surgery
DX: N64.89 Other specified disorders of breast (principal); N61.1 Abscess of the breast and nipple
CPT/HCPCS: 10160; 76604; 76942; 88104; 88108; 88305